=== PATIENT | female | born 1950 | race Caucasian/White ===

== ENCOUNTER → 2024-07-23 06:34 | Outpatient (REF) | payer MEDICARE, OTHER, SELFPAY ==
[2024-07-23 07:40] LABS: % Basophils 0.7 % (0-2); % Immature Granulocytes 0.2 % (0-0.5); % Lymphocytes 36.4 % (20.5-51.1); % Monocytes 13.4 % (1.7-9.3); % Neutrophils 48.3 % (42.2-75.2); Absolute Lymphocytes 1.5 10^3/uL (1.2-3.4); Absolute Monocytes 0.6 10^3/uL (0.1-0.6); Hematocrit 42.7 % (37.0-47.0); Hemoglobin 14.2 g/dL (12.0-16.0); Mean Corp Hgb Conc. 33.3 g/dL (33.0-37.0); Mean Corpuscular Hgb 32.1 pg (27.0-31.0); Mean Corpuscular Volume 96.4 fL (81.0-99.0); Mean Platelet Volume 10.4 fL (7.4-10.4); Nucleated Red Blood Cells % 0 %; Platelet Count 203 10^3/uL (130-400); Red Blood Cell Count 4.43 10^6/uL (4.20-5.40); Red Cell Dist. Width 12.7 % (11.5-14.5); White Blood Cell Count 4.1 10^3/uL (4.8-10.8)
[2024-07-23 08:09] LABS: Blood Urea Nitrogen 26 mg/dl (7-17); Calcium 9.3 mg/dl (8.4-10.2); Carbon Dioxide 27 mmol/L (22-30); Chloride 103 mmol/L (98-107); Glucose 91 mg/dl (70-99); Potassium 4.3 mmol/L (3.5-5.1); Sodium 140 mmol/L (135-145); eGFR > 60.00
== END ==
LOC: RCS 06:34
PROVIDERS: ATTENDING PHYSICIAN Orthopaedic Surgery; FAMILY PHYSICIAN Family Medicine
DX: Z01.818 Encounter for other preprocedural examination (principal)
CPT/HCPCS: 36415; 80048; 85025; 93005

== ENCOUNTER → 2024-11-17 06:24 | Outpatient (REF) | payer MEDICARE, OTHER, SELFPAY | LOC: MRI 06:24 | PROVIDERS: ATTENDING PHYSICIAN Orthopaedic Surgery; FAMILY PHYSICIAN Family Medicine | DX: M25.511 Pain in right shoulder (principal) | CPT/HCPCS: 73221 ==

== ENCOUNTER 2025-05-03 07:34 | Emergency (ER) | payer MEDICARE, OTHER, SELFPAY ==
[2025-05-03 07:37] VITALS: BP 144/89
[2025-05-03] MEDS: ADACEL 0.5 ML IM (08:25)
--- NOTE | 2025-05-03 09:37 | ED.GENMED ---
History of Present Illness
General
Chief Complaint: Skin Surface Trauma
Time Seen by Provider: 05/03/25 07:38
History of Present Illness
History of Present Illness:
see MDM
Past History
Past History
ED Past Medical History: None
ED Past Surgical History: Other (Cataract surgery)
Social History
Tobacco: Non-smoker
Alcohol: None
Drug: None
Living: with family
Phy Exam
Physical Exam
Physical Exam:
see MDM
Course
Orders/Labs/Results
Orders:
Orders
05/03/25 08:13
Tetanus/Diphth/Acelpertussis [Adacel] 0.5 ml IM .ONCE ONE
Vital Signs
Initial and Last Documented VS:
Initial Vital Signs
Pulse Resp BP Pulse Ox
85 18 144/89 100
05/03/25 07:37 05/03/25 07:37 05/03/25 07:37 05/03/25 07:37
Last Documented Vital Signs
Temp Pulse Resp BP Pulse Ox
36.9 C 85 18 144/89 100
05/03/25 07:42 05/03/25 07:37 05/03/25 07:37 05/03/25 07:37 05/03/25 09:37
Procedures
Laceration Closure
Right First Finger(s):
Status of Wound: clean
Size of Wound in cm: 1
Preparation: cleaned with saline
Type of Closure: other (sterrstrips)
MDM/Problems Addressed
Differential Diagnosis Includes:
see MDM
MDM/Problems Addressed:
Note:
CHIEF COMPLAINT(S)
Laceration to the hand from a mandolin injury.
HISTORY OF PRESENT ILLNESS
The patient is a 74-year-old female who presented with a laceration on the hand sustained from a mandolin slicer injury yesterday. The bleeding was significant, lasting approximately 20 minutes. The patient attempted to self-manage initially but is
concerned about a flap in the skin that does not seem to stay together. The injury is on her fourth mandolin, incurred while preparing food. The patient did mention that a Band-Aid was applied as an initial measure.
Upon evaluation, the patient expresses concern about how to properly dress the wound and mentions that she is not diabetic. She is anxious about the cleaning process. Given the timeline, the injury is not amenable to suturing due to its temporal
onset, but wound closure will be facilitated using Steri-Strips. The healthcare provider reassured the patient that the wound would heal without stitching, and proper care involves cleaning it with saline and applying steri strips.
MEDICATIONS
Meloxicam (exact dosage not specified).
PHYSICAL EXAM
- Musculoskeletal: Injury to hand with visible laceration. Note of a skin flap due to the mandolin injury. Adequate movement of the hand observed.
- Nursing notes reviewed and vital signs reviewed.
PLAN
- Clean the laceration with saline solution.
- Apply Steri-Strips to approximate wound edges.
- Cover the injury with an appropriate dressing to be maintained until Tuesday.
- Advise the patient to avoid soaking the hand in water for two days.
- Instruct the patient to remove the dressing on Tuesday, wash the hands, and allow the Steri-Strips to peel off naturally over time, trimming edges if necessary.
DIFFERENTIAL DIAGNOSIS
The Differential Diagnosis includes, in no particular order and is not limited to:
1. Simple laceration
2. Deep cut with possible involvement of deeper structures
3. Infection (given wound exposure and handling)
4. Tendon injury (though not suspected)
5. Minor hand trauma
6. Hematoma formation
7. Abrasion
8. Soft tissue injury
9. Contusion
10. Foreign body retention
74 y/o F
right hand dominant here with R thumb laceration from mandolin yesterday
bleeding controlled
cleaned and dressed with bandaid
tetanus outdated, given here
her wound is slightly open, will need to heal by 2ndary intention
will assist with sterristrips
return precautions
*Pulse Oximetry
SaO2: 100
Oxygen Mode of Delivery: Room air
Patient hypoxic: no (100)
*Critical Care Note
Total Time (30-74mins, 75-104mins- exclusive of procedures): Not Applicable
ED Attending Note
-
Portions of this chart may have been created with voice recognition software.� Occasional wrong word or��sound alike� substitutions may have occurred due to the inherent limitations of voice recognition software.
Discharge Plan
Departure
Patient Disposition: Home (Routine Discharge)
Date of Disposition: 05/03/25
Time of Disposition: 08:13
Patient with high blood pressure during this ER visit?: No
Condition: Fair
Covid-19: Not Applicable
Discharge Problem:
Laceration of skin
Instructions: Laceration Repair With Glue (DC)
Prescriptions:
No Action
gabapentin 400 mg capsule
400 mg PO DAILY@1999
Rx Instructions:
05/16/2023, take w/ two 100 mg capsules for a total of 600 mg.
meloxicam 15 mg Tablet
15 mg PO DAILY
ibuprofen [Advil] 200 mg Tablet
200 mg PO HSPRN PRN (Reason: mild pain)
Patient Comments:
05/16/2023, pt. states that she will take this medication at least 3-4 hours after she takes her gabapentin as needed.
calcium carbonate [Tums 500] 500 mg calcium (1,250 mg) Tablet,Chewable
1,000 mg PO DAILY PRN (Reason: heartburn)
gabapentin 100 mg Capsule
200 mg PO DAILY@1999
Rx Instructions:
05/16/2023, take w/ one 400 mg capsule for a total of 600 mg.
metoprolol tartrate 25 mg tablet
25 mg PO DAILY Qty: 14 0RF
Referrals:
Eyal Valle MD [Family Provider, Family Practice]
Activity Restrictions/Additional Instructions:
Your wound was closed with Steri-Strips. Keep it clean and dry for 48 hours if possible. If you need to change the Band-Aid you can. After 48 hours you can get it wet in normal water and the Steri-Strips will peel up and fall off. After that you
can clean your hand with mild soap and water. It will heal over the next couple of days. You were given a tetanus shot today.
Interventions
Interventions:
*General Assessment Last Done: 05/03/25 07:37
*Neglect/Abuse Screening Last Done: 05/03/25 07:37
*ED COVID-19 Vaccine History Last Done: 05/03/25 07:37
*ED Influenza Vaccine History Last Done: 05/03/25 07:37
[facility] Risk Assessment Tool Last Done: 05/03/25 08:15
*Risk Screen - Suicide (C-SSRS) Last Done: 05/03/25 07:37
*Nursing Disposition Last Done: 05/03/25 08:25
ED-Skin Assessment Last Done: 05/03/25 08:15
Discharge Date and Time
Discharge Date/Time: 05/03/25 08:25
Print Language: CROATIAN
== END 2025-05-03 08:25 | disposition home or self-care (01) ==
LOC: EMR 07:34
PROVIDERS: EMERGENCY PHYSICIAN Emergency Medicine; FAMILY PHYSICIAN Family Medicine
DX: S61.011A Laceration without foreign body of right thumb without damage to nail, initial encounter (principal); W27.4XXA Contact with kitchen utensil, initial encounter; Y93.G1 Activity, food preparation and clean up; Z23 Encounter for immunization
CPT/HCPCS: 99283; 90471; 90715